=== PATIENT | female | born 1985 | race Caucasian/White ===

== ENCOUNTER 2017-08-11 09:27 | Emergency (ER) | payer OTHER, SELFPAY ==
[2017-08-11 09:54] VITALS: BP 126/82; PULSE 78; RESP 20; TEMP 37.2; O2SAT 99; BMI 27.2
[2017-08-11 10:10] LABS: UTC Influenza A Antigen Negative (Negative); UTC Influenza B Antigen Negative (Negative)
--- NOTE | 2017-08-11 10:20 | HMH.EDUTC ---
"[facility] [place] Clinical Impression: Viral upper respiratory illness Disposition: Home, Self-Care Condition on Discharge: Good Instructions: DI for Viral Upper Respiratory Infection -- Adult Additional Instructions: * No sign of bacterial infection. Likely viral. Virus can take 7-14 days to run their course * Monitor Temp. Follow up if fever develops. * Encourage fluids, water, gatorade, powerade, pedialyte if /toddler/child * warm salt water gargles * warm fluids * sore throat lozenges * sleep elevated * humidifier/vaporizer * COntinue your flonase 2 sprays each nostril daily but may take 2-3 days to notice improvement with it. * Bromfed may cause drowsiness. Know how it effects you (or your child) before driving, caring for small children, or sending your child to school. No other antihistamines/allergy medications while taking bromfed. Prescriptions: Brompheniramine/Pseudoephed/Dm [Bromfed DM Cough Syrup 5mL] 10 ml PO QID PRN #240 ml PRN Reason: Cough Referrals: Alex Hearn MD [Primary Care Provider] - (Follow up IMMEDIATELY for new or worsening symptoms OR no noticeable improvement over the next 72 hours. 911 for difficulty breathing or swallowing.) Time of Disposition: 10:36 Medical Decision Making Vital Signs: 08/11/17 09:54 Temperature 98.9 F Temperature Source Oral Pulse Rate [Radial] 78 Respiratory Rate 20 Blood Pressure [Right Arm] 126/82 Blood Pressure Mean [Right Arm] 96 Blood Pressure Source [Right Arm] Automatic Cuff Blood Pressure Position [Right Arm] Sitting 02 Sat by Pulse Oximetry 99 Oxygen Delivery Method Room Air - Lab Data Lab results reviewed: Yes: I reviewed the patient's lab results. Lab Results 08/11/17 09:50: Influenza Type A Ag Negative, Influenza Type B Ag Negative - Noam Inquiry Pt receiving controlled substance: No [facility] [place] - General Stated complaint: cough, chest congestion Time Seen by Provider: 08/11/17 10:20 Mode of Arrival: Ambulatory Source of Information: Patient Limitations: No Limitations HEENT Symptoms (Recalled from RN notes): Yes Resp Symptoms (Recalled from RN notes): Yes Skin Symptoms (Recalled from RN notes): No MS Symptoms (Recalled from RN notes): No Functional Status (Recalled from RN notes): n/a - History of Present Illness Provider Complaint: c/o nonprod cough x 2 days. Started w/ rhinorrhea, nasal congestion, PND and moved to chest. Denies SOA, wheezing. + tobacco abuse approx 0.5-0.75ppd. Hasn't taken or tried anything for symptoms. Mother w/ same symptoms x 5 days. Dx viral URI. - Related Data Previous Rx's Medication Instructions Recorded Brompheniramine/Pseudoephed/Dm 10 ml PO QID PRN #240 ml 08/11/17 [Bromfed DM Cough Syrup 5mL] Allergies Allergy/AdvReac Type Severity Reaction Status Date / Time No Known Allergies Allergy Unverified 05/30/17 14:46 - Worker's Comp Is this a Worker's Comp case?: No Is this an [employer] Worker's Comp?: No Is this a [place] Worker's Comp?: No [id number] | [employer] History I have reviewed the patient's past medical history: Yes Medical History: Denies:: Cancer, Diabetes Mellitus Type 1, Diabetes Mellitus Type 2, Hypertension, MRSA Laterality Cases: Bilateral: Tonsillectomy Other Surgeries: Yes: (x2), Other (cholecystectomy) Amputation: No Fractures: No - Social History Smoking Status: Current every day smoker Tobacco Type: cigarettes Alcohol Intake: never - Psychiatric History Expresses thoughts of harming self/others: None Suicide Plan Description: No Plan ROS Obtained: Yes Systems reviewed as appropriate & no additional complaints - Constitutional Constitutional: Denies body ache, Denies chills, Denies fatigue, Denies poor appetite - Eyes Eyes: Denies eye discharge - ENT Ears, Nose, Mouth, and Throat: Denies otalgia, Reports nasal congestion, Reports nasal discharge, Denies pain with swallowing, Denies sinus pressure, Denies sore throat - Cardiovascula"
[2017-08-11 10:48] VITALS: BP 130/70; PULSE 69; RESP 20; TEMP 37.2
== END 2017-08-11 10:52 | disposition home or self-care (01) ==
PROVIDERS: Emergency Provider Nurse Practitioner Family; Family Provider Emergency Medicine; PCP Emergency Medicine
DX: J06.9 Acute upper respiratory infection, unspecified (principal)
CPT/HCPCS: 87804; 99202

== ENCOUNTER → 2017-10-02 15:29 | Outpatient (CLI) | payer OTHER, SELFPAY ==
[2017-10-02 18:28] LABS: Basophils % 0.5 % (0.1-2.0); Eosinophils # 0.1 K/mm3 (0.0-0.4); Eosinophils % 1.5 % (0.1-12.0); Hematocrit 41.3 % (37.0-47.0); Hemoglobin 13.7 g/dL (12.2-16.2); Lymphocytes # 2.7 K/mm3 (0.7-4.5); Lymphocytes % 33.3 K/mm3 (10-50); Mean Corpuscular HGB Conc 33.2 g/dL (31.8-35.4); Mean Corpuscular Volume 99.6 fl (81-99); Mean Platelet Volume 8.7 fl (7.4-10.4); Monocytes # 0.5 K/mm3 (0.1-1.0); Monocytes % 5.9 % (1.7-9.3); Neutrophils # 4.7 K/mm3 (1.8-7.8); Neutrophils % 58.9 % (37.0-80.0); Platelet Count 215 K/mm3 (142-424); Red Blood Count 4.15 M/mm3 (4.20-5.40); Red Cell Distribution Width 12.5 % (11.5-17.5); White Blood Count 8.1 K/mm3 (4.8-10.8)
[2017-10-02 20:09] LABS: Alanine Aminotransferase 39 U/L (12-78); Albumin/Globulin Ratio 1.1 (1.1-1.8); Alkaline Phosphatase 58 U/L (46-116); Anion Gap 13.1 mEq/L (5-15); Aspartate Amino Transferase 27 U/L (15-37); Bilirubin,Total 0.2 mg/dL (0.2-1.0); Blood Urea Nitrogen 15 mg/dL (7-18); Calcium 9.8 mg/dL (8.5-10.1); Carbon Dioxide 29 mmol/L (21.0-32.0); Chloride 102 mmol/L (98-107); Chol/HDL Ratio 5.7 (1-3.5); Cholesterol 204 mg/dL (140-200); Creatinine,Serum 0.92 mg/dL (0.55-1.02); Estimated Glomerular Filt Rate 71 ml/min (>60); GFR (African American) 86 ML/MIN (>60); Globulin 3.6 gm/dl (1.3-3.2); Glucose 67 mg/dL (74-106); HDL Cholesterol 36 mg/dL (29-89); LDL Cholesterol 145 mg/dL (0-130); Potassium 4.1 mmoL/L (3.5-5.1); Sodium 140 mmol/L (136-145); T4 (Thyroxine) 10.2 ug/dl (4.7-13.3); Thyroid Stimulating Hormone 1.66 uIU/ml (0.358-3.740); Total Protein,Serum 7.6 gm/dL (6.4-8.2); Triglycerides 113 mg/dL (30-200); VLDL Cholesterol 23 mg/dL (0-40)
[2017-10-06 12:36] LABS: Vitamin D 25 Hydroxy 28.5 ng/mL (30.0-100.0)
[2017-10-06 12:40] LABS: H. pylori Breath Test Negative (Negative)
== END ==
PROVIDERS: Visit Provider Nurse Practitioner Family
DX: R10.13 Epigastric pain (principal); R53.83 Other fatigue
CPT/HCPCS: 80053; 80061; 82652; 83013; 83036; 84436; 84443; 85025

== ENCOUNTER → 2018-04-02 14:15 | Outpatient (CLI) | payer OTHER, SELFPAY ==
--- NOTE | 2018-04-02 14:18 | XR_ITS ---
XR acute abdomen series HISTORY: Current smoker, abdominal pain ITS.REASON: abdominal pain ORDERING PHYSICIAN: MURTAZA Babcock PATIENT AGE: 32 years COMPARISON: [id number] TECHNIQUE: Upright view of the chest is performed along with upright and supine views of the abdomen and pelvis. FINDINGS: An upright view of the chest shows no acute cardiac or pulmonary pathology. The lungs are clear. Upright and supine views of the abdomen show an unremarkable bowel gas pattern. No intestinal obstruction or free air is evident. No abnormal calcifications or significant bony anomalies evident. Surgical clips are present in the right upper quadrant. There is an IUD present. The bowel gas pattern is nonspecific with a mild amount retained colonic feces. Nonspecific pelvic calcifications are present unchanged. IMPRESSION: No acute finding
== END ==
PROVIDERS: PCP Physician Assistant; Visit Provider Physician Assistant
DX: R10.9 Unspecified abdominal pain (principal)
CPT/HCPCS: 74021

== ENCOUNTER 2019-10-06 13:17 | Emergency (ER) | payer OTHER, SELFPAY ==
[2019-10-06 13:24] VITALS: BP 122/74; PULSE 110; RESP 16; TEMP 37.1; O2SAT 98; BMI 30.5
--- NOTE | 2019-10-06 14:15 | HMH.EDWNDL ---
ED Disposition Clinical Impression: Laceration Disposition: Home, Self-Care Condition on Discharge: Good Instructions: DI for Laceration Repair Referrals: Alex Hearn MD [Primary Care Provider] - - Critical Care Critical Care Time: No Attestation: On 10/06/19, the high probability of a clinically significant, sudden or life threatening deterioration of the following system(s) required my full and direct attention, intervention and personal management. The time I documented below is in addition to time spent performing reported procedures but includes the following listed in this critical care notation. Medical Decision Making - Medical Records Medical records reviewed: Yes: I reviewed the patient's medical records. - Noam Inquiry Pt receiving controlled substance: No Vital Signs: 10/06/19 13:24 Temperature 98.7 F Temperature Source Oral Pulse Rate [Right Brachial] 110 H Respiratory Rate 16 Blood Pressure [Right Arm] 122/74 Blood Pressure Mean [Right Arm] 90 Blood Pressure Source [Right Arm] Automatic Cuff Blood Pressure Position [Right Arm] Sitting 02 Sat by Pulse Oximetry 98 Oxygen Delivery Method Room Air - Lab Data Lab results reviewed: Yes: I reviewed the patient's lab results. Orders (Tests/Meds): ED MEDICATIONS Generic Name Dose Route Start Last Admin Trade Name Freq PRN Reason Stop Dose Admin Silver Nitrate 1 each 10/06/19 14:12 Silver Nitrate Applicator TP 10/06/19 14:13 ONCE ONE Wound/Laceration HPI - General Chief Complaint: Wound/Laceration Stated Complaint: AO [id number] left hand thumb laceration Time Seen by Provider: 10/06/19 14:00 Mode of Arrival: Ambulatory Source of Information: Patient Limitations: No Limitations Description of Symptoms (Recalled from ER Triage Doc. by RN): Pt was starting to wash dishes and cut the tip of her thumb on her left hand - History of Present Illness HPI narrative: 33-year-old female presents the ED with a laceration on her left thumb. Apparently she was washing dishes earlier in and cut herself on a knife. Presently she presents with the thumb wrapped in gauze and states that the pain is 4 out of 10 and sharp with no alleviating factors. Patient denies any other trauma patient denies any other injuries. Patient denies any recent illness. - Related Data Previous Rx's Medication Instructions Recorded Nitrofurantoin Monohyd/M-Cryst 100 mg PO BID #14 cap 10/03/18 [Macrobid 100 mg Capsule] Phenazopyridine HCl [Pyridium 200 pow PO TID #6 tab 10/03/18 200mg Tablet] levonorgestrel-ethinyl estradiol 1 tab PO DAILY #84 tab 09/02/19 0.1 mg-20 mcg tablet Allergies Allergy/AdvReac Type Severity Reaction Status Date / Time No Known Allergies Allergy Verified 06/19/19 13:29 [facility] History - Hepatitis A Screen Drug use history?: No High risk sexual behaviors?: No History of sexually transmitted infection?: No Currently employed?: No Childcare worker?: No Do you have indoor plumbing?: Yes Do you have electricity?: Yes Attestation statement:: This patient has been screened for Hepatitis A risk factors. I have reviewed the patient's past medical history: Yes Medical History: Denies:: Cancer, Diabetes Mellitus Type 1, Diabetes Mellitus Type 2, Hypertension, MRSA Laterality Cases: Bilateral: Tonsillectomy Other Surgeries: Yes: Cholecystectomy, , Dilation and Curettage, Other Amputation: No Fractures: No Comment: GALLBLADDER REMOVED - Social History Smoking Status: Current every day smoker Tobacco Type: cigarettes # Packs/Day (cigarettes): 1 Alcohol Intake: never Substance Use Type: denies use Occupational Status: employed Housing: house Household Members: family Family Hx:: Hypertension, Thyroid Disorder Comment: GROWTH ON THYROID [employer]ULING CONTRACTOR history: Spontaneous ROS Obtained: Yes All systems reviewed & no additional complaints - Constitutional Constitutional
--- NOTE | 2019-10-06 14:41 | PC.NURSE ---
Md at beside and used silver nitrate sticks to cauterize the injury, it was a small arterial wound. Bleeding was controlled and MD applied pressure dressing. Pt tolerated procedure well.
[2019-10-06 14:43] VITALS: BP 120/70; PULSE 98; RESP 16; TEMP 36.9; O2SAT 98
== END 2019-10-06 14:44 | disposition home or self-care (01) ==
PROVIDERS: Emergency Provider Family Medicine; PCP Emergency Medicine
DX: S65.412A Laceration of blood vessel of left thumb, initial encounter (principal); W26.0XXA Contact with knife, initial encounter; Y92.010 Kitchen of single-family (private) house as the place of occurrence of the external cause
CPT/HCPCS: 12001; 99282

== ENCOUNTER → 2022-08-24 13:26 | Outpatient (CLI) | payer OTHER, SELFPAY ==
--- NOTE | 2022-08-24 13:29 | XR_ITS ---
FINAL REPORT CLINICAL HISTORY: left knee pain COMPARISON: none FINDINGS: Three views of the left knee reveal no evidence of fracture or dislocation. The bony alignment is normal. The joint spaces are preserved. There is no evidence of joint effusion. No localized soft tissue abnormality is seen. IMPRESSION: No acute abnormality identified. Reviewed, Interpreted and Dictated by Huang Najera III, MD Transcribed by Nan Aleman Authenticated and [facility]
== END ==
PROVIDERS: PCP Physician Assistant; Visit Provider Physician Assistant
DX: M25.562 Pain in left knee (principal)
CPT/HCPCS: 73562

== ENCOUNTER 2024-08-05 11:00 | Outpatient (CLI) | payer OTHER, SELFPAY ==
[2024-08-05 21:39] LABS: Human Rhinovirus Not Detected (NotDetected); Influenza A, PCR Not Detected (NotDetected); Influenza B, PCR Not Detected (NotDetected); Respiratory Syncytial Virus Not Detected (NotDetected)
[2024-08-06 02:44] LABS: Coronavirus 19, PCR Detected (NotDetected)
== END 2024-08-05 23:59 | disposition home or self-care (01) ==
LOC: LAB.DROPOF 08-06 18:18
PROVIDERS: PCP Nurse Practitioner; Visit Provider Nurse Practitioner
DX: R50.9 Fever, unspecified (principal); J02.9 Acute pharyngitis, unspecified
CPT/HCPCS: 87631

== ENCOUNTER 2024-10-04 07:36 | Outpatient (CLI) | payer OTHER, SELFPAY | END 2024-10-04 23:59 | disposition home or self-care (01) | LOC: LAB.DROPOF 10-05 07:36 | PROVIDERS: PCP Nurse Practitioner; Visit Provider Nurse Practitioner | DX: R35.0 Frequency of micturition (principal) | CPT/HCPCS: 87086; 87088; 87186 ==